=== PATIENT | female | born 1975 | race Caucasian/White ===

== ENCOUNTER 2022-11-15 09:58 | Outpatient (OUT) | payer OTHER, SELFPAY ==
[2022-11-15 10:51] LABS: Alanine Aminotransferase 57 U/L (14-59); Albumin Globulin Ratio 1.1; Albumin Level 3.8 g/dL (3.4-5.0); Alkaline Phosphatase 57 U/L (46-116); Anion Gap 13.6; Aspartate Amino Transferase 33 U/L (15-37); BUN Creatinine Ratio 23.9; Bilirubin Total 0.4 mg/dL (0.2-1.0); Calcium 9.2 mg/dL (8.5-10.1); Carbon Dioxide 27.8 mmol/L (21.0-32.0); Chloride 101 mmol/L (98-107); Estimated GFR (African America >60 (>=60); Estimated GFR (Non-African Ame >60 (>=60); Globulin 3.6 g/dL; Glucose 103 mg/dL (74-106); Potassium 4.4 mmol/L (3.5-5.1); Sodium 138 mmol/L (136-145); Total Protein 7.4 g/dL (6.4-8.2)
[2022-11-15 11:01] LABS: Chol HDL Ratio 5.5; Cholesterol 275 mg/dL (<=200); HDL Cholesterol 50 mg/dL (40-60); Triglycerides 413 mg/dL (<=150); VLDL CHOLESTEROL 82.6 mg/dL
[2022-11-15 11:05] LABS: LDL Cholesterol Direct 138 mg/dL
== END 2022-11-15 09:59 ==
DX: E78.2 Mixed hyperlipidemia (principal); I10 Essential (primary) hypertension
CPT/HCPCS: 36415; 80053; 80061; 83721